=== PATIENT | female | born 1995 | race African-American/Black ===

== ENCOUNTER 2017-09-14 20:35 | Emergency (ER) | payer OTHER, MEDICAID ==
[~2017-09-14] VITALS: Ht 180.3 cm; Wt 111.6 kg
[~2017-09-14 20:35] MED LIST: AMOXICILLIN 50500 MG PO; BACTRIM DS TAB1 EACH PO; CIPRO500 MG PO; FLAGYL500 MG PO; FLEXERIL PO; HYDROCODON-ACE1 EAC7 PO; KEFLEX500 MG PO; NAPROSYN500 MG PO; NOHOMEMEDICATIONS; NORCO 5-325 TA1 EACH PO; ONDANSETRON HCL4 M2 PO; PHENAZOPYRIDIN200 M2 PO; PRENATA CHEWAB1 EACH PO; PROCTOSOL-HC28.35 GM RC; TRAMADOL 50 MG50 MG PO; UNKNOWN ANTIBIOTIC; ZOFRAN ODT4 MG PO
[2017-09-14 21:05] LABS: URINE BILIRUBIN NEGATIVE (Negative); URINE BLOOD 3+ (Negative); URINE CLARITY CLEAR; URINE COLOR YELLOW; URINE GLUCOSE-RANDOM NEGATIVE (Negative); URINE KETONES NEGATIVE (Negative); URINE LEUKOCYTES NEGATIVE (Negative); URINE NITRITE NEGATIVE (Negative); URINE PROTEIN NEGATIVE (Negative); URINE SPECIFIC GRAVITY 1.015 (1.005-1.030); URINE UROBILINOGEN 0.2 E.U./dl (0.2-1.0)
[2017-09-14 21:12] LABS: SQUAMOUS 0-3 Few /LPF (0-3); TRANSITIONAL EPITHEL CELL 0-3 Few /LPF (None Seen); URINE RBC >20 Many /HPF (0-2); URINE WBC >25 Many /HPF (0-5); WBC CLUMPS Moderate (None Seen)
[2017-09-14 21:13] LABS: BACTERIA >30 Many /HPF (None Seen); CASTS None Seen /LPF (None Seen); CRYSTALS None Seen /LPF (None Seen); MUCUS 4-6 Moderate strn/LPF (None Seen)
[2017-09-14 21:21] LABS: ABSOLUTE BASOPHILS 0.1 thou/uL (0.0-0.2); ABSOLUTE LYMPHOCYTES 1.5 thou/uL (0.8-5.3); ABSOLUTE MONOCYTES 0.8 thou/uL (0.0-1.2); ABSOLUTE NEUTROPHILS 8.1 thou/uL (1.6-8.1); BASOPHILS 0.5 %; EOSINOPHILS 0.3 %; HEMATOCRIT 35.7 % (37.0-47.0); HEMOGLOBIN 11.5 gm/dL (12.0-15.0); LYMPHOCYTES 13.9 %; MCH 25.1 pg (26.0-34.0); MCHC 32.3 g/dL (28.0-37.0); MCV 77.8 fL (80.0-100.0); MONOCYTES 7.9 %; MPV 8.7 fl. (7.2-11.1); NUCLEATED RBCS 0 /100WBC; PLATELET COUNT* 252 thou/uL (150-400); POLYS 77.4 %; RBC 4.59 mil/uL (4.20-5.00); RDW-CV 16.8 % (10.5-14.5); WBC 10.5 thou/uL (4.0-11.0)
[2017-09-14 21:36] LABS: INFLUENZA A ANTIGEN None Detected (None Detect); INFLUENZA B ANTIGEN None Detected (None Detect)
[2017-09-14 21:54] LABS: ALBUMIN 3.3 g/dL (3.4-5.0); CALCIUM 8.8 mg/dL (8.5-10.1); POTASSIUM 3.8 mmol/L (3.5-5.1); TOTAL BILIRUBIN 0.2 mg/dL (<0.1-1.0); TOTAL PROTEIN 7.8 g/dL (6.4-8.2)
[2017-09-14] MEDS ORDERED: PROMETHAZINE HC25 M1 PO (23:42)
[2017-09-14] MEDS ORDERED: BACTRIM DS TAB1 EAC1 PO (23:42)
[2017-09-14] MEDS ORDERED: IBUPROFEN 800800 M1 PO (23:42)
[2017-09-14 23:50] VITALS: BP 126/80
== END 2017-09-14 23:50 | disposition home or self-care (01) ==
LOC: M.ERS 20:35
PROVIDERS: Nurse Practitioner
DX: N12 Tubulo-interstitial nephritis, not specified as acute or chronic (principal); R50.9 Fever, unspecified; Z90.89 Acquired absence of other organs

== ENCOUNTER 2018-03-03 11:12 | Emergency (ER) | payer OTHER, MEDICAID ==
[~2018-03-03] VITALS: Ht 180.3 cm; Wt 97.5 kg
[~2018-03-03 11:12] MED LIST changes: +BACTRIM DS TAB1 EAC1 PO; +IBUPROFEN 800800 M1 PO; +PROMETHAZINE HC25 M1 PO
[2018-03-03 11:24] VITALS: BP 119/65
[2018-03-03] MEDS ORDERED: ACTICIN 5% CREA60 G1 TOP (11:40)
[2018-03-03] MEDS ORDERED: TRIAMCINOLONE A80 G2 TOP (11:40)
[2018-03-03] MEDS ORDERED: MEDROLDOSEPACK PO (11:40)
== END 2018-03-03 11:50 | disposition home or self-care (01) ==
LOC: M.ERS 11:12
DX: R21 Rash and other nonspecific skin eruption (principal)

== ENCOUNTER 2018-03-24 10:33 | Emergency (ER) | payer OTHER, MEDICAID ==
[~2018-03-24] VITALS: Ht 180.3 cm; Wt 97.5 kg
[~2018-03-24 10:33] MED LIST changes: +ACTICIN 5% CREA60 G1 TOP; +MEDROLDOSEPACK PO; +TRIAMCINOLONE A80 G2 TOP
[2018-03-24 10:41] VITALS: BP 138/56
[2018-03-24] MEDS ORDERED: FLEXERIL PO (11:02)
[2018-03-24] MEDS ORDERED: MEDROLDOSEPACK PO (11:02)
== END 2018-03-24 11:10 | disposition home or self-care (01) ==
LOC: M.ERS 10:33
DX: M54.41 Lumbago with sciatica, right side (principal); Z90.89 Acquired absence of other organs

== ENCOUNTER 2018-05-27 10:14 | Emergency (ER) | payer OTHER, MEDICAID ==
[~2018-05-27] VITALS: Ht 180.3 cm; Wt 97.5 kg
[2018-05-27 10:54] LABS: URINE BLOOD 3+ (Negative); URINE CLARITY CLOUDY; URINE COLOR RED; URINE GLUCOSE-RANDOM NEGATIVE (Negative); URINE KETONES NEGATIVE (Negative); URINE NITRITE-REFLEX NEGATIVE (Negative); URINE PROTEIN 3+ (Negative); URINE SPECIFIC GRAVITY >= 1.030 (1.005-1.030); URINE UROBILINOGEN 0.2 E.U./dl (0.2-1.0)
[2018-05-27 10:58] LABS: ICTOTEST (BILI CONFIRMATORY) Negative (Negative); URINE BILIRUBIN 1+ (Negative); URINE LEUKOCYTES-REFLEX 3+ (Negative)
[2018-05-27 11:05] LABS: CASTS None Seen /LPF (None Seen); CRYSTALS None Seen /LPF (None Seen); MUCUS 0-3 Light strn/LPF (None Seen); SQUAMOUS 0-3 Few /LPF (0-3); URINE RBC >20 Many /HPF (0-2); URINE WBC-REFLEX 6-15 Few /HPF (0-5)
[2018-05-27 11:15] LABS: ABSOLUTE EOSINOPHILS 0.1 thou/uL (0.0-0.7); ABSOLUTE LYMPHOCYTES 1.7 thou/uL (0.8-5.3); ABSOLUTE MONOCYTES 0.6 thou/uL (0.0-1.2); ABSOLUTE NEUTROPHILS 2.5 thou/uL (1.6-8.1); BASOPHILS 0.8 %; EOSINOPHILS 2.3 %; HEMATOCRIT 32.6 % (37.0-47.0); HEMOGLOBIN 10.2 gm/dL (12.0-15.0); MCH 23.3 pg (26.0-34.0); MCHC 31.2 g/dL (28.0-37.0); MCV 74.7 fL (80.0-100.0); MONOCYTES 12.1 %; MPV 8.7 fl. (7.2-11.1); NUCLEATED RBCS 0 /100WBC; PLATELET COUNT* 263 thou/uL (150-400); POLYS 49.8 %; RBC 4.37 mil/uL (4.20-5.00); RDW-CV 16.5 % (10.5-14.5); WBC 4.9 thou/uL (4.0-11.0)
[2018-05-27 11:23] LABS: CALCIUM 8.6 mg/dL (8.5-10.1); POTASSIUM 3.8 mmol/L (3.5-5.1)
[2018-05-27 11:28] LABS: ALBUMIN 3.3 g/dL (3.4-5.0); TOTAL BILIRUBIN 0.2 mg/dL (<0.1-1.0); TOTAL PROTEIN 8.1 g/dL (6.4-8.2)
[2018-05-27 11:34] LABS: INFLUENZA A ANTIGEN None Detected (None Detect); INFLUENZA B ANTIGEN None Detected (None Detect)
[2018-05-27] MEDS ORDERED: IRON325 PO (11:51)
[2018-05-27] MEDS ORDERED: BACTRIM DS TAB1 EACH PO (11:52)
[2018-05-27 12:01] VITALS: BP 121/71
== END 2018-05-27 12:01 | disposition home or self-care (01) ==
LOC: M.ERS 10:14
PROVIDERS: Nurse Practitioner Family
DX: D64.9 Anemia, unspecified (principal); N39.0 Urinary tract infection, site not specified; F17.210 Nicotine dependence, cigarettes, uncomplicated